=== PATIENT | female | born 1980 | race Caucasian/White ===

== ENCOUNTER 2019-08-02 12:07 | Outpatient (CLI) | payer MEDICAID ==
[2019-08-02 13:08] LABS: TOTAL PROTEIN,URINE RANDOM < 6.0 MG/DL
== END 2019-08-02 23:59 | disposition home or self-care (01) ==
LOC: LAB 12:07
DX: Z34.83 Encounter for supervision of other normal pregnancy, third trimester (principal); Z3A.00 Weeks of gestation of pregnancy not specified
CPT/HCPCS: 82570; 84156

== ENCOUNTER 2023-12-25 14:55 | Outpatient (CLI) | payer MEDICAID | END 2023-12-25 23:59 | disposition home or self-care (01) | LOC: MRI 14:55 | PROVIDERS: ATTEND Family Medicine | DX: S83.411A Sprain of medial collateral ligament of right knee, initial encounter (principal); M70.51 Other bursitis of knee, right knee; M25.561 Pain in right knee; M25.461 Effusion, right knee; X58.XXXA Exposure to other specified factors, initial encounter; Y93.89 Activity, other specified; Y92.89 Other specified places as the place of occurrence of the external cause; Y99.8 Other external cause status | CPT/HCPCS: 73721 ==